=== PATIENT | female | born 1985 | race Caucasian/White ===

== ENCOUNTER → 2021-09-20 13:07 | Outpatient (CLI) | payer OTHER, SELFPAY ==
[2021-09-20 15:25] LABS: TSH w/ Reflex to FT4 1.12 uIU/mL (0.47-4.68)
== END ==
PROVIDERS: PCP Registered Nurse Diabetes Educator; Referring Provider Registered Nurse Diabetes Educator; Visit Provider Registered Nurse Diabetes Educator
DX: R79.89 Other specified abnormal findings of blood chemistry (principal)
CPT/HCPCS: 36415; 84443

== ENCOUNTER → 2022-11-04 08:33 | Outpatient (CLI) | payer OTHER, SELFPAY ==
[2022-11-04 10:28] LABS: Influenza A - CEPHEID Flu A NEGATIVE (NEGATIVE); Influenza B - CEPHEID Flu B NEGATIVE (NEGATIVE); Respiratory Syncytial Virus Negative (Negative)
[2022-11-04 10:32] LABS: COVID-19 CEPHEID 4-PLEX PCR Negative (Negative)
== END ==
PROVIDERS: Family Provider Registered Nurse Diabetes Educator; PCP Registered Nurse Diabetes Educator; Visit Provider Nurse Practitioner Family
DX: J02.9 Acute pharyngitis, unspecified (principal); J06.9 Acute upper respiratory infection, unspecified; Z20.822 Contact with and (suspected) exposure to COVID-19
CPT/HCPCS: 0241U; 87070

== ENCOUNTER → 2023-03-22 08:01 | Outpatient (CLI) | payer OTHER, SELFPAY ==
[2023-03-22 12:41] LABS: Hematocrit 36.4 % (36-46); Hemoglobin 12.2 g/dL (12.0-16.0); Mean Corpuscular HGB Conc 33.5 % (30-36); Mean Corpuscular Hemoglobin 30.3 PG (26-34); Mean Corpuscular Volume 90.3 fL (80-100); Platelet Count 265 X10^3/uL (150-400); Red Blood Cell Count 4.03 X10^6/uL (4.0-5.2); Red Cell Distribution Width 13.1 % (11.6-14.8); White Blood Cell Count 5.1 X10^3/uL (4.5-11.0)
[2023-03-22 13:24] LABS: Alanine Aminotransferase 21 IU/L (<35); Albumin 4.5 g/dL (3.5-5.0); Albumin Globulin Ratio 1.6 (1.0-2.8); Alkaline Phosphatase 54 U/L (38-126); Aspartate Aminotransferase 22 IU/L (14-36); BUN Creatinine Ratio 16.4 (6-22); Bilirubin Total 0.5 mg/dL (0.2-1.3); Blood Urea Nitrogen 11 mg/dL (7-17); Calcium 9.3 mg/dL (8.4-10.2); Carbon Dioxide 27 mmol/L (22-32); Chloride 101 mmol/L (98-107); Cholesterol 199 mg/dL (140-199); Estimated Glomerular Filt Rate > 60 mL/min (>60); Globulin 2.8 g/dL (1.7-4.1); Glucose 89 mg/dL (70-100); HDL Cholesterol 58 mg/dL (40-60); HEMOLYSIS < 15 (0-50); LDL Cholesterol Calculated 119 mg/dL (<100); Potassium 4.3 mmol/L (3.4-5.1); Sodium 136 mmol/L (137-145); Total Protein 7.3 g/dL (6.3-8.2); Triglycerides 111 mg/dL (35-150)
[2023-03-22 13:48] LABS: TSH w/ Reflex to FT4 0.67 uIU/mL (0.47-4.68)
== END ==
PROVIDERS: Family Provider Registered Nurse Diabetes Educator; PCP Registered Nurse Diabetes Educator; Referring Provider Registered Nurse Diabetes Educator; Visit Provider Registered Nurse Diabetes Educator
DX: Z00.00 Encounter for general adult medical examination without abnormal findings (principal); R79.89 Other specified abnormal findings of blood chemistry
CPT/HCPCS: 36415; 80053; 80061; 84443; 85027

== ENCOUNTER → 2023-07-27 09:20 | Outpatient (CLI) | payer OTHER, SELFPAY ==
[2023-07-27 11:23] LABS: Rubella Antibody IgG 20.8 IU/mL (>15)
[2023-07-28 08:02] LABS: Hepatitis B Surf Ab Qualitativ Reactive (.)
[2023-07-28 08:09] LABS: Varicella IgG Antibody 499 index (Immune >165)
[2023-07-28 13:36] LABS: Mumps Virus IgG Antibody 37.4 AU/mL (Immune >10.9)
== END ==
PROVIDERS: Family Provider Registered Nurse Diabetes Educator; PCP Registered Nurse Diabetes Educator; Referring Provider Registered Nurse Diabetes Educator; Visit Provider Registered Nurse Diabetes Educator
DX: Z00.00 Encounter for general adult medical examination without abnormal findings (principal); Z02.9 Encounter for administrative examinations, unspecified
CPT/HCPCS: 36415; 86706; 86735; 86762; 86765; 86787

== ENCOUNTER 2023-10-21 23:16 | Emergency (ER) | payer OTHER, SELFPAY ==
[2023-10-21 23:33] VITALS: BP 118/71; PULSE 71; RESP 16; TEMP 36.9; O2SAT 98; BMI 24.2
--- NOTE | 2023-10-21 23:38 | DI.RAD.S_ITS ---
PROCEDURE: XR CHEST 1V INDICATIONS: Eval for pneumonia TECHNIQUE: One view of the chest was acquired. COMPARISON: [facility], CR, XR CHEST 1VW (PORTABLE), 01/08/2017, 20:55. FINDINGS: Surgical changes and devices: None. Lungs and pleura: Lungs are clear. No pleural effusions or pneumothorax. Mediastinum: Mediastinal contours appear normal. Heart size is normal. Bones and chest wall: No suspicious bony lesions. Overlying soft tissues appear unremarkable. IMPRESSION: No acute cardiopulmonary abnormality. Dictated by: Temo Olson M.D. on 10/21/2023 at 23:52 Approved by: Temo Olson M.D. on 10/21/2023 at 23:53
[2023-10-22 00:14] VITALS: BP 119/62; PULSE 89; RESP 18; O2SAT 98
--- NOTE | 2023-10-22 00:22 | ED.GENADULT ---
HPI - General Adult General Chief complaint: Shortness of Breath/Dyspnea Stated complaint: hard to breath, coughing Time Seen by Provider: 10/21/23 23:38 Source: patient Mode of arrival: Ambulatory History of Present Illness HPI narrative: Patient is a 38-year-old female. Has a history of asthma. Is here for evaluation of a couple days of coughing and hard to breathe. No fevers. Has a nonproductive cough. She is not wheezing. She does get short of breath when she gets up and moves around. No chest pain. She has been using her inhalers at home and she thinks it does improve her symptoms somewhat for short period of time. Other individuals in the family also have similar symptoms. She does not feel like she is congested. Related Data Home Medications Medication Instructions Recorded Confirmed multivitamin 1 tab PO DAILY 07/12/21 03/06/23 Previous Rx's Medication Instructions Recorded albuterol sulfate 90 mcg/actuation 2 inh inhalation Q4-6H PRN 06/07/22 aerosol inhaler (ProAir HFA) shortness of breath or wheezing #8.5 grams albuterol sulfate 2.5 mg/3 mL 2.5 mg (3 mL) inhalation Q6H PRN 03/06/23 (0.083 %) solution for nebulization shortness of breath or wheezing #90 mL fluticasone 250 mcg-salmeterol 50 1 inh inhalation BID #180 ea 03/06/23 mcg/dose blistr powdr for inhalation (Advair Diskus) montelukast 10 mg tablet 10 mg PO BEDTIME #90 tabs 03/06/23 benzonatate 100 mg capsule 100 mg PO Q6H PRN cough #20 caps 10/22/23 prednisone 20 mg tablet 20 mg PO DAILY 6 days #6 tabs 10/22/23 Allergies Allergy/AdvReac Type Severity Reaction Status Date / Time No Known Drug Allergies Allergy Unverified 03/06/23 09:05 Review of Systems Constitutional Constitutional: Reports system reviewed and no additional complaints, except as documented Cardiovascular Cardiovascular: Reports system reviewed and no additional complaints, except as documented Respiratory Respiratory: Reports system reviewed and no additional complaints, except as documented Integumentary/Breasts Skin/Breast: Reports system reviewed and no additional complaints, except as documented Neurologic Neurologic: Reports system reviewed and no additional complaints, except as documented Hematologic/Lymphatic On Anticoagulants: No Patient History Medical History Anxiety with flying IBS (irritable bowel syndrome) Moderate persistent asthma Social History marital status: Smoking Status: Never smoker alcohol intake: current (1 drink per evening) substance use type: does not use Smoking Status: Never smoker alcohol intake frequency: a few times a week Substance Use Type: does not use Exam Initial Vital Signs Initial Vital Signs: Vital Signs Temperature 98.5 F 10/21/23 23:33 Pulse Rate 71 10/21/23 23:33 Respiratory Rate 16 10/21/23 23:33 Blood Pressure 118/71 10/21/23 23:33 Pulse Oximetry 98 10/21/23 23:33 Oxygen Delivery Method Room Air 10/21/23 23:33 HENMT Head: normal to inspection and normocephalic Resp Effort & Inspection: normal respiratory effort Auscultation: clear to auscultation bilaterally Cardio Rate: regular rate Rhythm: regular rhythm Skin General: no rashes or lesions noted Neuro General: patient alert, patient awake and moves all extremities Extrem General: capillary refill normal Course Orders Ordered: ED Orders 10/21/23 23:38 XR chest 1V Stat Discontinued Medications Benzonatate (Benzonatate 100 Mg Capsule) 100 mg PO NOW ONE Stop: 10/22/23 00:38 Last Admin: 10/22/23 00:43 Dose: 100 mg Documented By: ANDREW Prednisone (Prednisone 20 Mg Tablet) 20 mg PO NOW ONE Stop: 10/22/23 00:38 Last Admin: 10/22/23 00:43 Dose: 20 mg Documented By: ANDREW Vital Signs Vital signs: Vital Signs - 8 hr 10/21/23 23:33 10/22/23 00:14 Temperature 98.5 F Pulse Rate 71 89 Respiratory Rate 16 18 Blood Pressure 118/71 119/62 Pulse Oximetry 98 98 Oxygen Delivery Method Room Air Room Air Medical Decision Making Imaging Data Chest x-ray: Radiologist's Impression: PROCEDURE: XR CHEST 1V INDICATIONS: Eval for pneumonia TECHNIQUE: One view of the chest was acquired. COMPARISON: [facility], CR, XR CHEST 1VW (PORTABLE), 01/08/2017, 20:55. FINDINGS: Surgical changes and devices: None. Lungs and pleura: Lungs are clear. No pleural effusions or pneumothorax. Mediastinum: Mediastinal contours appear normal. Heart size is normal. Bones and chest wall: No suspicious bony lesions. Overlying soft tissues appear unremarkable. IMPRESSION: No acute cardiopulmonary abnormality. MDM Narrative Medical decision making narrative: Afebrile. Lungs are clear. No respiratory distress. No retractions. Chest x-ray shows no signs of pneumonia. She has a history of asthma. No wheezing today however she states that at home the nebulizers do seem to improve her symptoms somewhat. We discussed medications she could try for the cough. Will provide a prescription for Tessalon. Will also try steroids because of her history of asthma. First dose given here in the ER prescription was sent to pharmacy of her choice. There was no indication for antibiotics she was given return precautions. She expressed understanding and agreement. Discharge Plan Departure Patient Disposition: Home Clinical Impression: Cough Instructions: DI for Cough -- Adult Activity Restrictions/Additional Instructions: I do recommend that you continue with your nebulizer/albuterol at home as needed. Use the steroids on a daily basis like we discussed. Sure that you were increasing your fluid intake. Return to the emergency department for new symptoms. Prescriptions: New benzonatate 100 mg capsule 100 mg PO Q6H PRN (Reason: cough) Qty: 20 0RF prednisone 20 mg tablet 20 mg PO DAILY 6 Days Qty: 6 0RF No Action multivitamin Tablet 1 tab PO DAILY albuterol sulfate [ProAir HFA] 90 mcg/actuation HFA aerosol inhaler 2 inh inhalation Q4-6H PRN (Reason: shortness of breath or wheezing) Qty: 8.5 3RF albuterol sulfate 2.5 mg /3 mL (0.083 %) solution for nebulization 2.5 mg inhalation Q6H PRN (Reason: shortness of breath or wheezing) Qty: 90 2RF fluticasone propion-salmeterol [Advair Diskus] 250-50 mcg/dose blister with device 1 inh inhalation BID Qty: 180 3RF montelukast 10 mg tablet 10 mg PO BEDTIME Qty: 90 3RF Referrals: Gómez Tamez ARNP [Primary Care Provider] - Stand Alone Forms: Patient Portal/API
[2023-10-22] MEDS: BENZONATATE 100 MG CAPSULE PO (00:43)
[2023-10-22] MEDS: predniSONE 20 MG TABLET PO (00:43)
== END 2023-10-22 00:47 | disposition home or self-care (01) ==
PROVIDERS: Emergency Provider Emergency Medicine; Family Provider Registered Nurse Diabetes Educator; PCP Registered Nurse Diabetes Educator
DX: R05.9 Cough, unspecified (principal)
CPT/HCPCS: 71045; 99283

== ENCOUNTER → 2023-11-15 09:55 | Outpatient (CLI) | payer OTHER, SELFPAY ==
--- NOTE | 2023-11-15 | DI.MG.S_ITS ---
BILATERAL DIGITAL SCREENING MAMMOGRAM 3D/2D WITH CAD: 11/15/2023 CLINICAL: Baseline exam. Routine screening. No prior exams were available for comparison. Both breasts are heterogeneously dense, which may obscure small masses (category c / 51-75% glandular tissue). Current study was also evaluated with a Computer Aided Detection (CAD) system. There are grouped calcifications in the left breast at 1 o'clock posterior depth. No other significant masses, calcifications, or other findings are seen in either breast. IMPRESSION: INCOMPLETE: NEEDS ADDITIONAL IMAGING EVALUATION The grouped calcifications in the left breast are indeterminate. Additional views are recommended. Based on the Tyrer Cuzick model (a risk assessment model) the patient's lifetime risk is 13.8% and her 10 year risk is 1.7%. According to the ACR, ACS, and NCCN guidelines, an annual breast MRI exam along with mammogram is recommended if the patient's lifetime risk is 20% or greater. This exam was interpreted at Station ID: [id number]. NOTE: For mammograms, a report in lay terms will be sent to the patient. Approximately 15% of breast malignancies will not be visualized mammographically. In the management of a palpable breast mass, a negative mammogram must not discourage biopsy of a clinically suspicious lesion. Electronically Signed By: Ricki Stoddard M.D. lc/:11/15/2023 10:53:19 letter sent: Additional Imaging Needed ACR BI-RADS Category 0: Incomplete 3340F
== END ==
PROVIDERS: Family Provider Registered Nurse Diabetes Educator; PCP Registered Nurse Diabetes Educator; Referring Provider Registered Nurse Diabetes Educator; Visit Provider Registered Nurse Diabetes Educator
DX: Z12.31 Encounter for screening mammogram for malignant neoplasm of breast (principal)
CPT/HCPCS: 77063; 77067

== ENCOUNTER → 2023-12-05 13:19 | Outpatient (CLI) | payer OTHER, SELFPAY ==
--- NOTE | 2023-12-05 | DI.MG.S_ITS ---
UNILATERAL LEFT DIGITAL DIAGNOSTIC MAMMOGRAM 3D/2D WITH ADDITIONAL VIEWS: 12/05/2023 CLINICAL: Additional evaluation requested from prior study. Comparison is made to exam dated: 11/15/2023 mammogram - [facility]. The left breast is heterogeneously dense, which may obscure small masses (category c / 51-75% glandular tissue). There is possible architectural distortion in the left breast posterior depth central to the nipple seen on the craniocaudal view only. There also are benign diffuse calcifications in the left breast at 1 o'clock posterior depth. No other significant masses or calcifications are seen in the breast. IMPRESSION: INCOMPLETE: NEEDS ADDITIONAL IMAGING EVALUATION Left breast calcifications are diffuse and are benign. The possible architectural distortion in the left breast posterior depth central to the nipple is indeterminate. A targeted ultrasound is recommended and will immediately follow. Based on the Tyrer Cuzick model (a risk assessment model) the patient's lifetime risk is 14.1% and her 10 year risk is 1.8%. According to the ACR, ACS, and NCCN guidelines, an annual breast MRI exam along with mammogram is recommended if the patient's lifetime risk is 20% or greater. This exam was interpreted at Station ID: [id number]. NOTE: For mammograms, a report in lay terms will be sent to the patient. Approximately 15% of breast malignancies will not be visualized mammographically. In the management of a palpable breast mass, a negative mammogram must not discourage biopsy of a clinically suspicious lesion. Electronically Signed By: Temo Olson M.D. slc/:12/05/2023 15:37:19 ACR BI-RADS Category 0: Incomplete 3340F
--- NOTE | 2023-12-05 14:32 | DI.US.S_ITS ---
LIMITED ULTRASOUND OF LEFT BREAST AND AXILLA: 12/05/2023 CLINICAL: Abnormal mammo. Comparison is made to exams dated: 12/05/2023 mammogram and 11/15/2023 mammogram - [facility]. Color flow and real-time ultrasound of the left breast 12-2 o'clock, and axilla regions were performed. Dior scale images of the real-time examination were reviewed. There is a 0.9 cm x 0.7 cm x 0.6 cm oval mass in the left breast at 2 o'clock posterior depth 6 cm from the nipple. This oval mass is hypoechoic. Color flow imaging demonstrates that there is vascularity present. No ultrasound correlate for the possible architectural distortion in the 12:00 region. No significant abnormalities were seen sonographically in the left axilla. IMPRESSION: SUSPICIOUS OF MALIGNANCY The 0.9 cm mass in the left breast has a differential diagnosis of a fibroadenoma and is at a low suspicion for malignancy. An ultrasound guided biopsy is recommended. Exam findings were discussed with the patient by Dr. Mendes. This exam was interpreted at Station ID: [id number]. Electronically Signed By: Temo Olson M.D. slc/:12/07/2023 11:16:14 letter sent: Biopsy Required Ultrasound BI-RADS: 4a Low suspicion for malignancy
== END ==
LOC: MAMMO 13:20
PROVIDERS: Family Provider Registered Nurse Diabetes Educator; PCP Registered Nurse Diabetes Educator; Referring Provider Registered Nurse Diabetes Educator; Visit Provider Registered Nurse Diabetes Educator
DX: R92.8 Other abnormal and inconclusive findings on diagnostic imaging of breast (principal); R92.1 Mammographic calcification found on diagnostic imaging of breast; N63.21 Unspecified lump in the left breast, upper outer quadrant; R92.332 Mammographic heterogeneous density, left breast
CPT/HCPCS: 76642; 77065; G0279

== ENCOUNTER → 2023-12-19 | Outpatient (CLI) | payer OTHER, SELFPAY ==
--- NOTE | 2023-12-19 | PATH_ITS ---
[facility] Accession Number: [id number] No. of containers..01 Tissue . 01 Material submitted: . breast - LEFT BREAST 2:00 6 CMFN MASS . 01 Diagnosis: Left Breast at 2 o'clock 6 cm From Nipple, Mass, Biopsy: Benign fibroepithelial lesion, consistent with fibroadenoma. Microcalcifications are present and are associated with benign ductal epithelium. . . [facility] 12/21/2023 0947 Local . 01 Comment: As part of ongoing quality assurance/r&d lab technician, this case is also reviewed by Dr. Erum Schmid, who concurs with the given interpretation. . 01 Electronically signed: . Kya Bradley MD, Pathologist NPI- [id number] . 01 Gross description: . Received one formalin-filled container, labeled left breast 2 o'clock 6 cm FN. Sample received with plastic filter in container, sample loose in container, and consists of multiple fragments of arita-doss soft tissue and clotted blood, which range in size from 0.3 x 0.3 x 0.2 cm to 1.2 x 0.3 x 0.3 cm. The specimen is entirely submitted in one cassette. . Sample collection date and time, per requisition: 12/19/2023 at 0925. Total fixation time: Approximately 18 hours. ([facility]:[id number]) /MRV 12/20/2023 1021 Local . 01 Pathologist provided ICD-10: D24.2 . 01 CPT . 542675 Specimen Comment: A courtesy copy of this report has been sent to [facility] Pathology Performed at: 01 [facility] [address] [place] [address] [address], [place], [place] [id number] MD Christopher Loco MD Phone: [phone]
--- NOTE | 2023-12-19 | DI.MG.S_ITS ---
UNILATERAL LEFT DIGITAL DIAGNOSTIC MAMMOGRAM POST-PROCEDURE IMAGING FOR MARKER PLACEMENT: 12/19/2023 CLINICAL: Post clip. Comparison is made to exams dated: 12/05/2023 ultrasound, 12/05/2023 mammogram, and 11/15/2023 mammogram - [facility]. The left breast is heterogeneously dense, which may obscure small masses (category c / 51-75% glandular tissue). There are grouped calcifications in the left breast at 1 o'clock posterior depth. There also is a marker clip in the appropriate position in the left breast at 3 o'clock posterior depth 6 cm from the nipple. There is a surgical clip associated with the mass. No other significant masses or calcifications are seen in the breast. IMPRESSION: INCOMPLETE: NEEDS ADDITIONAL IMAGING EVALUATION There was a successful marker clip placement in the left breast at 3 o'clock posterior depth. Based on the Tyrer Cuzick model (a risk assessment model) the patient's lifetime risk is 14.1% and her 10 year risk is 1.8%. According to the ACR, ACS, and NCCN guidelines, an annual breast MRI exam along with mammogram is recommended if the patient's lifetime risk is 20% or greater. This exam was interpreted at Station ID: [id number]. NOTE: For mammograms, a report in lay terms will be sent to the patient. Approximately 15% of breast malignancies will not be visualized mammographically. In the management of a palpable breast mass, a negative mammogram must not discourage biopsy of a clinically suspicious lesion. Electronically Signed By: Kevin Mendes M.D. pc/:12/20/2023 08:47:56 ACR BI-RADS Category 0: Incomplete 3340F
--- NOTE | 2023-12-19 08:12 | DI.US.S_ITS ---
ULTRASOUND GUIDED BIOPSY LEFT BREAST USING VACUUM DEVICE WITH MARKING DEVICE INSERTED AND POST DIGITAL MAMMOGRAPHIC IMAGIN12/19/2023 CLINICAL: Left breast mass. PATIENT CONSENT: Risks (minor bleeding, infection, vasovagal reaction and repeat procedure), benefits and alternatives were explained to the patient and written informed consent was obtained. Correlation is made to exams dated: 12/19/2023 mammogram, 12/05/2023 ultrasound, 12/05/2023 mammogram, and 11/15/2023 mammogram - [facility]. An ultrasound guided biopsy using real-time ultrasound was performed for the 0.9 cm x 0.7 cm x 0.6 cm mass located in the left breast at 2 o'clock posterior depth 6 cm from the nipple. The skin was prepped in the usual manner. A 14 gauge biopsy needle was placed adjacent to the abnormality under ultrasound guidance. Once the needle was documented to be in the correct location, four specimens were obtained using a vacuum assisted device. A vision clip was inserted into the biopsy cavity. Post procedure digital mammographic imaging demonstrates the location device at the targeted area. The specimens were sent to the laboratory for pathological analysis. IMPRESSION: ULTRASOUND GUIDED BIOPSY BENIGN Ultrasound guided biopsy of the 0.9 cm x 0.7 cm x 0.6 cm mass in the left breast at 2 o'clock posterior depth 6 cm from the nipple was successful. Pathology indicates benign fibroadenoma (FA). Pathology results are concordant with imaging findings. Return to annual mammogram screening schedule is recommended. Results and recommendations will be communicated to the ordering provider's office. This exam was interpreted at Station ID: [id number]. juan m Lopez M.D., M.D./:12/25/2023 21:51:28
== END ==
LOC: US 08:10
PROVIDERS: Family Provider Registered Nurse Diabetes Educator; PCP Registered Nurse Diabetes Educator; Referring Provider Registered Nurse Diabetes Educator; Visit Provider Registered Nurse Diabetes Educator
DX: D24.2 Benign neoplasm of left breast (principal)
CPT/HCPCS: 19083; 77065

== ENCOUNTER → 2024-09-05 06:57 | Outpatient (CLI) | payer OTHER, SELFPAY ==
[2024-09-05 07:58] LABS: Hematocrit 38.7 % (36-46); Hemoglobin 12.8 g/dL (12.0-16.0); Mean Corpuscular HGB Conc 33.1 % (30-36); Mean Corpuscular Hemoglobin 29.9 PG (26-34); Mean Corpuscular Volume 90.4 fL (80-100); Platelet Count 296 X10^3/uL (150-400); Red Blood Cell Count 4.29 X10^6/uL (4.0-5.2); Red Cell Distribution Width 13.1 % (11.6-14.8); White Blood Cell Count 5.5 X10^3/uL (4.5-11.0)
[2024-09-05 08:42] LABS: Alanine Aminotransferase 22 IU/L (<35); Albumin 4.2 g/dL (3.5-5.0); Albumin Globulin Ratio 1.5 (1.0-2.8); Alkaline Phosphatase 48 U/L (38-126); Aspartate Aminotransferase 22 IU/L (14-36); BUN Creatinine Ratio 16.7 (6-22); Bilirubin Total 0.4 mg/dL (0.2-1.3); Blood Urea Nitrogen 13 mg/dL (7-17); Calcium 9.8 mg/dL (8.4-10.2); Carbon Dioxide 29 mmol/L (22-32); Chloride 101 mmol/L (98-107); Cholesterol 215 mg/dL (140-199); Estimated Glomerular Filt Rate > 60 mL/min (>60); Globulin 2.8 g/dL (1.7-4.1); Glucose 105 mg/dL (70-100); HDL Cholesterol 61 mg/dL (40-60); HEMOLYSIS < 15 (0-50); LDL Cholesterol Calculated 134 mg/dL (<100); Sodium 135 mmol/L (137-145); Triglycerides 98 mg/dL (35-150)
== END ==
PROVIDERS: Family Provider Registered Nurse Diabetes Educator; PCP Registered Nurse Diabetes Educator; Referring Provider Registered Nurse Diabetes Educator; Visit Provider Registered Nurse Diabetes Educator
DX: Z13.0 Encounter for screening for diseases of the blood and blood-forming organs and certain disorders involving the immune mechanism (principal); Z13.29 Encounter for screening for other suspected endocrine disorder; Z13.228 Encounter for screening for other metabolic disorders; Z13.220 Encounter for screening for lipoid disorders
CPT/HCPCS: 36415; 80053; 80061; 84443; 85027

== ENCOUNTER → 2024-10-28 13:56 | Outpatient (CLI) | payer OTHER, SELFPAY ==
--- NOTE | 2024-10-28 13:58 | DI.RAD.S_ITS ---
PROCEDURE: XR LUMBAR SPINE 2-3V INDICATIONS: acute on chronic low back pain @ L2 or L3 TECHNIQUE: 3 views of the lumbar spine were acquired. COMPARISON: None. FINDINGS: Transitional anatomy is present. Rudimentary ribs are present at T12, followed by 5 non rib-bearing lumbar vertebrae. The vertebral body heights are preserved. There is mild straightening of the lumbar lordosis. Mild intervertebral disc height loss at T11-T12. The intervertebral disc heights are otherwise preserved. No significant facet arthropathy. No significant hypertrophy of the spinous processes. The visualized sacroiliac joints are within normal limits. Possible cholelithiasis versus costal calcifications projecting over the right upper quadrant. IMPRESSION: 1. No acute radiographic abnormality of the lumbar spine. 2. Possible cholelithiasis. Dictated by: Fritz Hull M.D. on 10/28/2024 at 14:50 Approved by: Fritz Hull M.D. on 10/28/2024 at 14:52
== END ==
PROVIDERS: Family Provider Registered Nurse Diabetes Educator; PCP Registered Nurse Diabetes Educator; Referring Provider Physician Assistant; Visit Provider Physician Assistant
DX: M54.50 Low back pain, unspecified (principal); G89.29 Other chronic pain
CPT/HCPCS: 72100

== ENCOUNTER → 2024-11-17 10:04 | Outpatient (CLI) | payer OTHER, SELFPAY ==
--- NOTE | 2024-11-17 10:04 | DI.MG.S_ITS ---
BILATERAL DIGITAL SCREENING MAMMOGRAM 3D/2D WITH CAD: 11/17/2024 CLINICAL: Routine screening. Comparison is made to exams dated: 11/15/2023 mammogram, 12/05/2023 mammogram, and 12/19/2023 mammogram - [facility]. The breasts are heterogeneously dense, which may obscure small masses (category c / 51-75% glandular tissue). Current study was also evaluated with a Computer Aided Detection (CAD) system. There is a biopsy clip in the left breast. No significant masses, calcifications, or other findings are seen in either breast. There has been no significant interval change. IMPRESSION: BENIGN There is no mammographic evidence of malignancy. A 1 year screening mammogram is recommended. Based on the Tyrer Cuzick model (a risk assessment model) the patient's lifetime risk is 14.1% and her 10 year risk is 1.9%. According to the ACR, ACS, and NCCN guidelines, an annual breast MRI exam along with mammogram is recommended if the patient's lifetime risk is 20% or greater. This exam was interpreted at Station ID: [id number]. NOTE: For mammograms, a report in lay terms will be sent to the patient. Approximately 15% of breast malignancies will not be visualized mammographically. In the management of a palpable breast mass, a negative mammogram must not discourage biopsy of a clinically suspicious lesion. Electronically Signed By: Lisa Grajeda M.D., Ph.D. joseph/jason:11/18/2024 07:10:43 letter sent: Normal Exam ACR BI-RADS Category 2: Benign
== END ==
PROVIDERS: Family Provider Registered Nurse Diabetes Educator; PCP Registered Nurse Diabetes Educator; Referring Provider Registered Nurse Diabetes Educator; Visit Provider Registered Nurse Diabetes Educator
DX: Z12.31 Encounter for screening mammogram for malignant neoplasm of breast (principal); R92.333 Mammographic heterogeneous density, bilateral breasts
CPT/HCPCS: 77063; 77067